=== PATIENT | female | born 2000 | race Caucasian/White ===

== ENCOUNTER 2022-05-28 12:33 | Emergency (ER) | payer MEDICAID ==
[~2022-05-28] VITALS: Ht 157.5 cm; Wt 52.0 kg
[2022-05-28 12:46] VITALS: BP_DIAS 72
[2022-05-28] MEDS ORDERED: ACETAMINOPHEN 325MG TABLET PO PRN (13:30)
[2022-05-28 16:09] LABS: BASOPHILS % 0.3 % (0.0-2.0); EOSINOPHILS % 0.7 % (0.0-5.0); HEMATOCRIT. 37.6 % (36.0-48.0); HEMOGLOBIN. 12.4 g/dL (12.0-16.0); LYMPHOCYTES % 21.8 % (20.0-50.0); MEAN CORPUSCULAR HEMOGLOBIN 27.9 pg (28.0-32.0); MEAN CORPUSCULAR VOLUME 84.2 fL (81.0-99.0); MEAN PLATELET VOLUME 8.7 fl (7.4-10.4); MONOCYTES % 3.8 % (2.0-8.0); NEUTROPHILS % 73.4 % (40.0-76.0); PLATELET 216 x1000/uL (130-400); RED BLOOD CELL COUNT 4.46 mill/uL (4.2-5.4)
[2022-05-28 16:20] LABS: HCG SCREEN POSITIVE
[2022-05-28 16:27] LABS: CLARITY URINE CLEAR (CLEAR); COLOR URINE YELLOW (YELLOW); KETONES URINE NEGATIVE (NEGATIVE); LEUKOCYTE ESTERASE URINE TRACE (NEGATIVE); NITRITE URINE NEGATIVE (NEGATIVE); OCCULT BLOOD URINE NEGATIVE (NEGATIVE); PH URINE 6.5 (4.5-8.0); PROTEIN URINE NEGATIVE (NEGATIVE); SPECIFIC GRAVITY URINE 1.007 (1.005-1.030); UROBILINOGEN URINE 0.2 E.U./dL (0.2-1.0)
[2022-05-28 16:27] LABS: CHLORIDE 105 mEq/L (98-107)
[2022-05-28 16:48] LABS: B-HCG QUANTITATIVE 36040 mIU/mL (<3)
[2022-05-28] MEDS ORDERED: CEPH250C2 MT (17:43)
[2022-05-28] MEDS ORDERED: ACET-3163 MT (17:45)
[2022-05-28 21:31] VITALS: BP_SYST 111
== END 2022-05-28 21:31 | disposition home or self-care (01) ==
LOC: ER 12:33
DX: O26.892 Other specified pregnancy related conditions, second trimester (principal); R10.9 Unspecified abdominal pain; O23.42 Unspecified infection of urinary tract in pregnancy, second trimester; N39.0 Urinary tract infection, site not specified; O44.02 Complete placenta previa NOS or without hemorrhage, second trimester; Z3A.16 16 weeks gestation of pregnancy; Z20.822 Contact with and (suspected) exposure to COVID-19
CPT/HCPCS: 36415; 71045; 76805; 80053; 81003; 81025; 84702; 84703; 85025; 87426; 99285; C9803

== ENCOUNTER 2022-09-29 22:21 | Inpatient (IN) | payer MEDICAID ==
[~2022-09-29] VITALS: Ht 165.1 cm; Wt 49.4 kg
[~2022-09-29 22:21] MED LIST: ACET-3163 MT; CEPH250C2 MT
[2022-09-29] MEDS ORDERED: NALOXONE HCL 0.4 MG/ML 1ML VIAL IM PRN (22:30)
[2022-09-29] MEDS ORDERED: TERBUTALINE SULFATE 1MG/ML VIAL SUBCUT PRN (22:30)
[2022-09-29] MEDS ORDERED: RHO(D) IMMUNE GLOBULIN 300 MCG/SYR IM ONE (22:30)
[2022-09-29] MEDS ORDERED: METHYLERGONOVINE MALEATE 0.2 MG/ML IM PRN (22:30)
[2022-09-29] MEDS ORDERED: CITRIC ACID/SODIUM CITRATE SOLN 30ML UDC PO PRN (22:30)
[2022-09-29] MEDS ORDERED: BLOOD SUGAR DIAGNOSTIC STRIP TEST NR (22:30)
[2022-09-29] MEDS ORDERED: CARBOPROST TROMETHAMINE 250 MCG/ML AMPUL IM PRN (22:30)
[2022-09-29] MEDS ORDERED: LACTATED RINGERS 1,000 ML IV ONE (22:30)
[2022-09-29] MEDS ORDERED: LACTATED RINGERS 1,000 ML IV SCH (22:30)
[2022-09-29] MEDS ORDERED: OXYTOCIN 10 UNITS/ML 1ML ONE (22:33)
[2022-09-29] MEDS ORDERED: DEXAMETHASONE 4MG/ML 1ML VIAL ONE (22:44)
[2022-09-29] MEDS ORDERED: ONDANSETRON HCL 4MG/2ML INJ ONE (22:44)
[2022-09-29] MEDS ORDERED: CEFAZOLIN SODIUM 1000MG/VIAL ONE (22:44)
[2022-09-29] MEDS ORDERED: KETOROLAC 60MG/2ML VIAL IM ONE (22:45)
[2022-09-29 22:57] LABS: BASOPHILS % 0.3 % (0.0-2.0); EOSINOPHILS % 0.7 % (0.0-5.0); HEMATOCRIT. 28.4 % (36.0-48.0); HEMOGLOBIN. 9.7 g/dL (12.0-16.0); LYMPHOCYTES % 32.5 % (20.0-50.0); MEAN CORPUSCULAR HEMOGLOBIN 30.2 pg (28.0-32.0); MEAN CORPUSCULAR VOLUME 88.6 fL (81.0-99.0); MEAN PLATELET VOLUME 8.9 fl (7.4-10.4); MONOCYTES % 5.7 % (2.0-8.0); NEUTROPHILS % 60.8 % (40.0-76.0); PLATELET 188 x1000/uL (130-400); RED CELL DISTRIBUTION WIDTH 17.3 % (11.6-14.6)
[2022-09-29] MEDS ORDERED: BETAMETHASONE ACET/BETAMET 30 MG/5 ML VIAL IM ONE (23:00)
[2022-09-29] MEDS ORDERED: BETAMETHASONE ACET/BETAMET 30 MG/5 ML VIAL IM SCH (23:00)
[2022-09-29 23:06] LABS: INR 0.9; PARTIAL THROMBOPLASTIN TIME 25.7 sec (23.4-31.0); PROTHROMBIN TIME 9.8 sec (9.6-11.0)
[2022-09-29 23:19] LABS: CLARITY URINE TURBID (CLEAR); COLOR URINE YELLOW (YELLOW); KETONES URINE NEGATIVE (NEGATIVE); LEUKOCYTE ESTERASE URINE NEGATIVE (NEGATIVE); NITRITE URINE NEGATIVE (NEGATIVE); OCCULT BLOOD URINE NEGATIVE (NEGATIVE); PH URINE 7.5 (4.5-8.0); PROTEIN URINE TRACE (NEGATIVE); SPECIFIC GRAVITY URINE 1.014 (1.005-1.030); UROBILINOGEN URINE 0.2 E.U./dL (0.2-1.0)
[2022-09-29] MEDS ORDERED: MORPHINE SULFATE/PF 1MG/ML 10ML AMP ONE (23:23)
[2022-09-29 23:36] LABS: *AMPHETAMINES SCREEN URINE NEGATIVE (NEGATIVE); *BARBITURATES SCREEN URINE NEGATIVE (NEGATIVE); *BENZODIAZEPINES SCREEN URINE NEGATIVE (NEGATIVE); *COCAINE SCREEN URINE NEGATIVE (NEGATIVE); CANNABINOID URINE SCREEN NEGATIVE (NEGATIVE); METHADONE URINE SCREEN NEGATIVE (NEGATIVE); OPIATES URINE SCREEN NEGATIVE (NEGATIVE); PHENCYCLIDINE URINE SCREEN NEGATIVE (NEGATIVE)
[2022-09-29 23:48] LABS: HEPATITIS B SURFACE ANTIGEN NEGATIVE
[2022-09-30] VITALS (16 sets, daily range): BP systolic 96–122; BP diastolic 53–77
[2022-09-30] MEDS ORDERED: EPHEDRINE SULFATE 50MG/ML VIAL ONE (00:01)
[2022-09-30] MEDS ORDERED: HEMORRHOIDAL SUPP PR PRN (00:30)
[2022-09-30] MEDS ORDERED: RHO(D) IMMUNE GLOBULIN 300 MCG/SYR IM PRN (00:30)
[2022-09-30] MEDS ORDERED: LANOLIN OINT 7GM TUBE TOP PRN (00:30)
[2022-09-30] MEDS ORDERED: BISACODYL 10MG SUPP PR PRN (00:30)
[2022-09-30] MEDS ORDERED: IBUPROFEN 400MG TABLET PO PRN (00:30)
[2022-09-30] MEDS ORDERED: ONDANSETRON HCL 4MG/2ML INJ IV PRN (00:30)
[2022-09-30] MEDS ORDERED: OXYTOCIN 30 UNITS/500ML NS PMX 500 ML IV SCH (00:30)
[2022-09-30] MEDS ORDERED: KETOROLAC 30MG/ML VIAL IV ONE (01:00)
[2022-09-30] MEDS ORDERED: PREN1TAB78 PO (01:35)
[2022-09-30] MEDS: PRENATAL VIT/FE FUMARATE/FA TABLET PO SCH (09:23)
[2022-09-30] MEDS: SIMETHICONE 80MG TABLET CHEW PO SCH ×3 (09:24→19:02)
[2022-09-30] MEDS: MAGNESIUM/ALUMINUM HYDROXIDE/SIMETHICONE 30ML UDC PO SCH ×3 (09:25→19:01)
[2022-09-30] MEDS ORDERED: LACTATED RINGERS 1,000 ML IV SCH (12:00)
[2022-09-30 12:59] LABS: BASOPHILS % 0.1 % (0.0-2.0); EOSINOPHILS % 0.1 % (0.0-5.0); LYMPHOCYTES % 15.1 % (20.0-50.0); MEAN CORPUSCULAR HEMOGLOBIN 29.4 pg (28.0-32.0); MEAN PLATELET VOLUME 8.6 fl (7.4-10.4); MONOCYTES % 5.2 % (2.0-8.0); NEUTROPHILS % 79.5 % (40.0-76.0); PLATELET 154 x1000/uL (130-400); RED BLOOD CELL COUNT 2.32 mill/uL (4.2-5.4); RED CELL DISTRIBUTION WIDTH 16.7 % (11.6-14.6)
[2022-09-30 13:17] LABS: HEMATOCRIT. 20.4 % (36.0-48.0); HEMOGLOBIN. 6.8 g/dL (12.0-16.0)
[2022-09-30] MEDS: IBUPROFEN 800MG TABLET PO PRN (19:01)
[2022-09-30] MEDS ORDERED: DOCUSATE SODIUM 100MG CAPSULE PO SCH (21:00)
[2022-10-01 00:30] VITALS: BP 91/64
[2022-10-01] MEDS: IBUPROFEN 800MG TABLET PO PRN ×4 (01:02→20:12)
[2022-10-01 04:00] VITALS: BP 100/62
[2022-10-01 06:42] LABS: BASOPHILS % 0.2 % (0.0-2.0); EOSINOPHILS % 0.3 % (0.0-5.0); HEMATOCRIT. 26.8 % (36.0-48.0); HEMOGLOBIN. 9.3 g/dL (12.0-16.0); LYMPHOCYTES % 25.2 % (20.0-50.0); MEAN CORPUSCULAR HEMOGLOBIN 30.4 pg (28.0-32.0); MEAN CORPUSCULAR VOLUME 87.3 fL (81.0-99.0); MEAN PLATELET VOLUME 8.8 fl (7.4-10.4); NEUTROPHILS % 70.3 % (40.0-76.0); PLATELET 135 x1000/uL (130-400); RED BLOOD CELL COUNT 3.07 mill/uL (4.2-5.4); RED CELL DISTRIBUTION WIDTH 15.4 % (11.6-14.6)
[2022-10-01 08:10] VITALS: BP 101/66
[2022-10-01] MEDS: MAGNESIUM/ALUMINUM HYDROXIDE/SIMETHICONE 30ML UDC PO SCH ×2 (09:43→13:32)
[2022-10-01] MEDS: ACETAMINOPHEN WITH CODEINE 300/30MG TABLET PO PRN ×2 (09:44→20:11)
[2022-10-01] MEDS: SIMETHICONE 80MG TABLET CHEW PO SCH ×2 (09:44→13:32)
[2022-10-01] MEDS: FERROUS SULFATE 325MG TABLET PO SCH ×2 (09:44→13:31)
[2022-10-01] MEDS: PRENATAL VIT/FE FUMARATE/FA TABLET PO SCH (09:44)
[2022-10-01 16:00] VITALS: BP 88/52
[2022-10-01 20:00] VITALS: BP 100/61
[2022-10-02 03:00] VITALS: BP 99/63
[2022-10-02] MEDS: IBUPROFEN 800MG TABLET PO PRN ×2 (03:25→14:36)
[2022-10-02] MEDS: ACETAMINOPHEN WITH CODEINE 300/30MG TABLET PO PRN (03:25)
[2022-10-02] MEDS ORDERED: FERR-63 PO (08:51)
[2022-10-02] MEDS ORDERED: IBUP-2030 PO (08:51)
[2022-10-02] MEDS: MAGNESIUM/ALUMINUM HYDROXIDE/SIMETHICONE 30ML UDC PO SCH (09:21)
[2022-10-02] MEDS: SIMETHICONE 80MG TABLET CHEW PO SCH (09:21)
[2022-10-02] MEDS: PRENATAL VIT/FE FUMARATE/FA TABLET PO SCH (09:23)
[2022-10-02] MEDS: FERROUS SULFATE 325MG TABLET PO SCH (09:23)
[2022-10-02 11:23] VITALS: BP 101/60
== END 2022-10-02 14:45 | disposition home or self-care (01) | DRG 540 ==
LOC: 8 EST LDRP 22:21 → 8EST 09-30 02:09
PROVIDERS: ADMIT Obstetrics & Gynecology; ATTEND Obstetrics & Gynecology
PROC: 10D00Z1 Extraction of Products of Conception, Low, Open Approach (ICD-10-PCS; principal; 2022-09-30)
PROC: 3E0R3BZ Introduction of Anesthetic Agent into Spinal Canal, Percutaneous Approach (ICD-10-PCS; 2022-09-30)
PROC: 30233N1 Transfusion of Nonautologous Red Blood Cells into Peripheral Vein, Percutaneous Approach (ICD-10-PCS; 2022-09-30)
DX: O44.13 Complete placenta previa with hemorrhage, third trimester (principal); O60.14X0 Preterm labor third trimester with preterm delivery third trimester, not applicable or unspecified; O99.02 Anemia complicating childbirth; Z37.0 Single live birth; Z3A.35 35 weeks gestation of pregnancy
CPT/HCPCS: 36415; 76815; 80305; 81003; 82962; 85025; 86592; 86703; 86762; 86850; 86900; 86920; 87340; 87426; 88307; 99281; J0690; J0702; J1100; J1885; J2274; J2405; J3490; J7120; P9016; A4315; J2590